=== PATIENT | female | born 1970 | race Caucasian/White ===

== ENCOUNTER 2021-12-24 15:47 | Emergency (ER) | payer MEDICARE, OTHER ==
[~2021-12-24] VITALS: Ht 162.6 cm; Wt 101.2 kg
[2021-12-24] MEDS ORDERED: CYCL10TA9 PO (17:26)
[2021-12-24] MEDS ORDERED: IBUP-1955 PO (17:26)
[2021-12-24] MEDS ORDERED: IBUPROFEN 600 MG TABLET PO ONE (17:30)
[2021-12-24] MEDS ORDERED: IBUPROFEN 600 MG TABLET ONE (17:34)
--- NOTE | 2021-12-24 17:38 | NUR ---
PT ONLY REQUESTS FOR MOTRIN MEDICATION; ADMINISTERED INDICATED, LIDIA WELL.
--- NOTE | 2021-12-24 17:40 | NUR ---
Patient discharged to home in stable condition. Written and verbal after care instructions given. Patient verbalizes understanding of instruction.
[2021-12-24 17:41] VITALS: BP 125/73
== END 2021-12-24 17:41 | disposition home or self-care (01) ==
LOC: ER 16:08
DX: M54.50 Low back pain, unspecified (principal); J45.909 Unspecified asthma, uncomplicated; E03.9 Hypothyroidism, unspecified; Z60.2 Problems related to living alone